=== PATIENT | female | born 1950 | race Two or more races ===

== ENCOUNTER 2025-01-15 11:03 | Outpatient (OUT) | payer MEDICARE, SELFPAY ==
--- OUTSIDE RECORDS SUMMARY | 2025-01-15 11:20 | XMS_ITS | Clinical Summary ---
Author Organization [facility] Address [address] [place] [address] Care Team Providers Care Jumpbasting Collar Baster Name Role Phone Unavailable Primary Care Provider Unavailabl e Allergies No known active allergies Medications amLODIPine (NORVASC) 5 mg tablet 10/29/2018 Active SYNTHROID 150 mcg tablet 12/20/2018 Active lamoTRIgine (LAMICTAL) 100 mg tablet 11/07/2018 Active Active Problems No known active problems Social History Tobacco Use Types Packs/Day Years Used Date Smoking Tobacco: Never Assessed Area Deprivation Index Answer Date Garfield rded National Score (1-100), lower number is lower ri sk Not on file 05/13/2020 State Score (1-10), lower number is lower risk N ot on file 05/13/2020 Data from: https://www.neighborhoodatlas.medicine[facility]/. Last address used for calculation Not on file 05/13/2020 Comments Unknown Sex and Gender Information Value Date Recorded Sex Assigned at Not on file Legal Sex Female 9:46 AM EST Gender Identity Not on file Sexual Orientation Not on file Last Filed Vital Signs Vital Sign Reading Time Taken Comments Blood Pressure 130/60 01/26/2019 11:18 AM EDT Pulse 95 01/26/2019 10:51 AM EDT Temperature 36.7 C (98.1 F) 01/26/2019 10:51 AM EDT Respiratory Rate - - Oxygen Saturation 97% 01/26/2019 10:51 AM EDT Inhaled Oxygen Concentration - - Weight - - Height - - Body Mass Index - - Plan of Treatment Health Maintenance Due Date Last Done Comments Anxiety Screening 11/14/1967 Depression Screening 11/14/1967 Hepatitis C Screening 11/14/1967 DTaP,Tdap,Td Vaccine (1 - Tdap) 1968 CT Colonography 1994 Cologuard (FIT-DNA) 1994 Colonoscopy 1994 Colorectal Cancer Screening 1994 Diabetes Screening 1994 Fecal Occult Blood 1994 Lipid Screening 1994 Sigmoidoscopy 1994 Pneumococcal Vaccine: 50+ (1 of 1 - PCV) 11/14/1999 Shingrix Vaccine (1 of 2) 11/14/1999 Bone Density Screening 2014 Advance Directive Discussion 06/06/2024 RSV Vaccine (1 - 1-dose 75+ series) 2024 Influenza Vaccine (#1) 2025 Insurance [employer] MEDICARE
--- OUTSIDE RECORDS SUMMARY | 2025-01-15 11:20 | XMS_ITS | Clinical Summary ---
Author Organization [facility] Address [address] [place] [address] Care Team Providers Care Systems Architecture Analyst Name Role Phone GeorgesMiley DO Primary Care Provider [phone] Allergies No known active allergies Medications LISINOPRIL PO Take by mouth Ac tive levothyroxine (Synthroid, Levoxyl) 75 MCG tablet Take 1 tablet by mouth in the morning. Take before meals. Active TEMAZEPAM PO 7.5 mg Active LORazepam (Ativan) 0.5 MG tablet Take by mouth As directed 1-2 per day Active lamoTRIgine (LaMICtal) 100 MG tablet Take 1 tablet by mouth BID Active amLODIPine (Norvasc) 5 MG tablet Take 1 tablet by mouth Daily Active losartan (Cozaar) 25 MG tablet Take 25 mg by mouth Daily 09/21/2023 Active aspirin 81 MG EC tablet Take 81 mg by mouth Daily Active Multiple Vitamin (multivitamin) tablet Take 1 tablet by mouth Daily Active Vitamin D-Vitamin K (DosoKap) 137.5-200 MCG tablet Take 1 tablet by mouth Daily 12/28/2023 Active [place]-3 Fatty Acids (Fish Oil) 1000 MG capsule delayed-release Take by mouth Active brompheniramine -pseudoephedrin e-DM 30-2-10 MG/5ML syrup TAKE 10 ML BY MOUTH EVERY 8 HOURS NEEDED FOR COUGH 10/28/2023 Active cyanocobalamin (Vitamin B-12) 500 MCG tablet Take 500 mcg by mouth Daily Active glucosamine-cho ndroitin 500-400 MG tablet Take 1 tablet by mouth in the morning and 1 tablet in the evening and 1 tablet before bedtime. Active Active Problems Problem Noted Date Diagnosed Date Anxiety 02/02/2021 Assessment & Plan (10/10/2023 9:43 PM EDT): *08/16/2022 Kathy Santoyo The patient does have significant anxiety and is on temazepam, lorazepam, and lamotrigine. Currently followed by Dr. Hdez. Denies SI or HI today. Today she feels as though anxiety and depressed mood are well controlled. PLAN: Continue following closely with Psychiatry (Dr. Hdez) Leg weakness, bilateral 02/02/2021 Assessment & Plan (10/10/2023 9:44 PM EDT): *07/20/2023 NatanaelKathy The patient has subjective weakness of the BLE (not overtly apparent on clinical exam). Lumbar spine MRI in 2020 showed mild degenerative changes, with neural foraminal narrowing at every level. She does have paresthesias in the L5/S1 distribution of her distal legs, but she denies any back pain. - PLAN - Will monitor clinically - Consider PT in future deferred today per patient request. Paresthesia 10/24/2020 Assessment & Plan (10/10/2023 9:41 PM EDT): *07/20/2023 Panda Santoyoy EMG of the bilateral lower extremities in October 2020 was unremarkable. Lumbar MRI in 2020 with evidence of multilevel degenerative disc disease, and neural foraminal narrowing. She does not have any back pain, and paresthesias are only in the distal extremities L>R in more so in a stocking glove type distribution. She is not diabetic and denies excessive alcohol use. Consideration is given to small fiber neuropathy. Labs have been unremakarkable PLAN - Continue to monitor clinically - Labs reviewed with the patient today - Consider PT in future, patient denies today - Consider skin biopsy if there is further concerns for SFN, this was discussed with the patient today and deferred per patient request. - Previously ordered duloxetine but the patient did not start this due to concerns with side effects Idiopathic peripheral neuropathy 10/17/2020 Family History Medical History Relation Name Comments Cancer Sibling Hypertension Sibling Relation Name Status Comments Sibling Social History Tobacco Use Types Packs/Day Years Used Date Smoking Tobacco: Never Smokeless Tobacco: Never Tobacco Cessation:Counseling Given: Not Answered Alcohol Use Standard Drinks/Week Comments Not Currently 0 (1 standard drink = 0.6 oz pur e alcohol) Comments Unknown Sex and Gender Information Value Date Recorded Sex Assigned at Not on file Legal Sex Female 1:45 PM EDT Gender Identity Not on file Sexual Orientation Not on file Last Filed Vital Signs Vital Sign Reading Time Taken Comments Blood Pressure 103/79 10/02/2024 12:58 PM EDT Pulse 79 10/02/2024 12:58 PM EDT Temperature 36.6 C (97.8 F) 01/06/2024 8:45 AM EDT Respiratory Rate - - Oxygen Saturation 94% 09/12/2024 9:55 AM EDT Inhaled Oxygen Concentration - - Weight 70.6 kg (155 lb 9.6 oz) 09/12/2024 9:55 A M EDT Height 162.6 cm (5' 4 ) 01/06/2024 8:45 AM EDT Body Mass Index 26.71 01/06/2024 8:45 AM EDT Plan of Treatment Health Maintenance Due Date Last Done Comments CT Colonography 1949 Colonoscopy 1949 Colorectal Cancer Screening 1949 FIT-DNA 1949 FIT 1949 FOBT 1950 Sigmoidoscopy 1950 Pneumococcal Vaccine: 65+ Years (1 of 1 - PCV) 000 Influenza Vaccine (#1) 2025 Insurance [employer] MEDICARE Care Teams Systems Architecture Analyst Relationship Specialty Start Date End Date Miley Georges DO [address] [place] [id number] PCP - General Family Medicine 10/11/23
[2025-01-15 12:12] LABS: TSH W/ REFLEX FT4 2.600 uIU/mL (0.358-3.740)
[2025-01-16 08:09] LABS: Vitamin B12 1535 pg/mL (232-1245)
[2025-01-17 17:08] LABS: Albumin 3.9 g/dL (2.9-4.4); Alpha-1-Globulin 0.2 g/dL (0.0-0.4); Alpha-2-Globulin 0.7 g/dL (0.4-1.0); Gamma Globulin 0.7 g/dL (0.4-1.8); Immunoglobulin A, Qn, Serum 156 mg/dL (64-422)
[2025-01-17 22:08] LABS: Vitamin B6, Plasma 84.4 ug/L (3.4-65.2)
== END 2025-01-15 11:04 | disposition home or self-care (01) ==
PROVIDERS: Visit Provider Nurse Practitioner Family
DX: R20.2 Paresthesia of skin (principal)
CPT/HCPCS: 36415; 82607; 82784; 84155; 84165; 84207; 84443; 86038; 86334